=== PATIENT | female | born 1970 | race Hispanic/Latino ===

== ENCOUNTER → 2018-10-10 | Outpatient (CLI) | payer MEDICAID | END | disposition home or self-care (01) | LOC: RAH 11:27 | PROVIDERS: ATTEND Family Medicine | DX: E04.1 Nontoxic single thyroid nodule (principal) | CPT/HCPCS: 76536 ==

== ENCOUNTER 2020-11-19 12:56 | Emergency (ER) | payer MEDICAID ==
[~2020-11-19] VITALS: Ht 162.6 cm; Wt 61.2 kg
[~2020-11-19 12:56] MED LIST: AMPH20CA PO; TRAM50TA4 PO; ZOLP10TA2 PO
[2020-11-19 12:58] VITALS: BP 123/89
[2020-11-19 13:40] LABS: BASOPHILS % (AUTO) 0.3 % (0.0-5.0); EOSINOPHILS % (AUTO) 0.1 % (0.0-8.0); HEMATOCRIT 37.3 % (36-48); LYMPHOCYTES % (AUTO) 4.4 % (21.0-51.0); MEAN CORPUSCULAR HEMOGLOBIN 28.7 pg (27.0-33.0); MEAN CORPUSCULAR HGB CONC 32.2 g/dL (32.0-36.0); MEAN CORPUSCULAR VOLUME 89.2 fL (79-99); MONOCYTES % (AUTO) 0.7 % (3.0-13.0); NEUTROPHILS % (AUTO) 93.2 % (40.0-77.0); PLATELET COUNT (AUTO) 207 K/uL (130-400); RED BLOOD CELL COUNT(AUTO) 4.18 MIL/uL (4.00-5.50); RED CELL DISTRIBUTION WIDTH 17.3 % (11.0-15.5); WHITE BLOOD COUNT (AUTO) 13.7 K/uL (4.8-10.8)
[2020-11-19 13:49] LABS: CREATININE 0.6 mg/dL (0.5-1.5); POTASSIUM 4.3 mmol/L (3.5-5.1)
[2020-11-19 13:54] LABS: ALBUMIN 2.9 g/dL (3.5-5.0); BILIRUBIN,TOTAL 0.3 mg/dL (0.2-1.0); CRP QUANTITATIVE 16.7 mg/L (0.00-9.0); TOTAL PROTEIN, SERUM 6.5 g/dL (6.0-8.3)
[2020-11-19 14:02] LABS: B-TYPE NATRIURETIC PEPTIDE 11 pg/mL (0-100)
[2020-11-19] MEDS ORDERED: IOHEXOL-350 75 ML VIAL IV ONE (14:43)
[2020-11-19] MEDS ORDERED: ACETAMINOPHEN 500 MG TABLET PO SCH (15:00)
[2020-11-19] MEDS ORDERED: LORAZEPAM 2 MG/ML 1 ML VIAL IVP SCH (15:00)
[2020-11-19 15:12] VITALS: BP 135/74
[2020-11-19] MEDS ORDERED: ALBUHFA IH (15:51)
[2020-11-19] MEDS ORDERED: FLUT1DIS IH (15:51)
[2020-11-19 16:28] VITALS: BP 135/80
== END 2020-11-19 16:29 | disposition home or self-care (01) ==
LOC: EDH 12:56
DX: U07.1 COVID-19 (principal); J22 Unspecified acute lower respiratory infection; F41.9 Anxiety disorder, unspecified; R06.02 Shortness of breath; Z79.899 Other long term (current) drug therapy; Z79.51 Long term (current) use of inhaled steroids; Z88.0 Allergy status to penicillin
CPT/HCPCS: 36415; 71045; 71275; 80053; 83880; 84484; 85025; 85378; 86140; 87635; 93005; 96374; 99285; C9803; J2060; J3490; Q9967